=== PATIENT | female | born 1975 ===

== ENCOUNTER 2020-06-04 05:35 | Day surgery (SDC) | payer OTHER ==
[~2020-06-04 05:35] MED LIST: PROTONIX40 MG PO
== END 2020-06-04 10:45 | disposition home or self-care (01) ==
LOC: CIR.AMB 05:35
PROVIDERS: ATTEND Surgery Surgery of the Hand
DX: M65.841 Other synovitis and tenosynovitis, right hand (principal); Z20.828 Contact with and (suspected) exposure to other viral communicable diseases